=== PATIENT | female | born 1975 | race Caucasian/White ===

== ENCOUNTER → 2017-11-28 | Outpatient (CLI) | payer BC | LOC: COL.CARD 08:41 | DX: G40.909 Epilepsy, unspecified, not intractable, without status epilepticus (principal) ==

== ENCOUNTER → 2019-01-01 | Outpatient (CLI) | payer BC | LOC: MC.RAD 10:44 | DX: Z12.31 Encounter for screening mammogram for malignant neoplasm of breast (principal); N64.89 Other specified disorders of breast ==

== ENCOUNTER → 2019-01-03 | Outpatient (CLI) | payer BC | LOC: MC.RAD 13:09 | DX: N64.89 Other specified disorders of breast (principal) | CPT/HCPCS: G0279 ==

== ENCOUNTER → 2019-07-25 | Outpatient (CLI) | payer BC ==
[~2019-07-25] MED LIST: COZAAR 50MG50 MG/TAB PO; FOLIC ACID 11 MG/TA1 PO; LAMICTAL150 MG PO; LEXAPRO 10MG10 MG PO; NORCO 325 MG-51 TAB PO; Work Release
== END ==
LOC: MC.RAD 10:17
DX: R92.2 Inconclusive mammogram (principal)
CPT/HCPCS: G0279

== ENCOUNTER → 2020-07-08 | Outpatient (CLI) | payer BC | LOC: MC.RAD 12:46 | DX: Z12.31 Encounter for screening mammogram for malignant neoplasm of breast (principal) ==

== ENCOUNTER → 2022-01-04 | Outpatient (CLI) | payer BC | LOC: MC.RAD 09:23 | DX: Z12.31 Encounter for screening mammogram for malignant neoplasm of breast (principal); Z01.419 Encounter for gynecological examination (general) (routine) without abnormal findings ==

== ENCOUNTER → 2022-01-07 | Outpatient (CLI) | payer BC | LOC: MC.RAD 07:44 | DX: Z01.419 Encounter for gynecological examination (general) (routine) without abnormal findings (principal); N60.01 Solitary cyst of right breast ==

== ENCOUNTER → 2023-11-14 | Outpatient (CLI) | payer BC | LOC: MC.RAD 09:53 | DX: Z12.31 Encounter for screening mammogram for malignant neoplasm of breast (principal) ==